=== PATIENT | female | born 2000 | race Caucasian/White ===

== ENCOUNTER 2018-06-25 17:58 | Emergency (ER) | payer OTHER ==
--- NOTE | 2018-06-25 19:14 | EDPHY ---
H & P Stated Complaint: Rash x 3 days; may be r/t cat exposure (has +cat allergy) Time Seen by Provider: 06/25/18 18:23 HPI/ROS: CHIEF COMPLAINT: Rash HISTORY OF PRESENT ILLNESS: This is a 17-year-old college student who presents with concern about a rash. She has developed a rash over both shoulders and also her face. She thinks that it might be related to her known cat allergy. Her roommate has a cat. She has been taking Benadryl for this rash on the Benadryl seems to help. The rash is not itchy. She does not feel short of breath. REVIEW OF SYSTEMS: A ten system review of systems was performed and is negative with the exception of the items mentioned in the HPI. Past medical history: Past surgical history: Family history: Social history: General Appearance: Alert. Vital signs reviewed. Eyes: Pupils equal and round, no conjunctival injection, no discharge. ENT, Mouth: Mucous membranes are moist, no oropharyngeal erythema or edema. Swallowing easily. Neck: No lymphadenopathy, supple. Trachea midline. Respiratory: Lungs are clear to auscultation; no wheezes, rales, or rhonchi. Cardiovascular: Regular rate and rhythm; no murmur, rub, or gallop. Gastrointestinal: Abdomen is soft and nontender, no masses or organomegaly, bowel sounds normal. Skin: Warm and dry, normal color. She has diffuse facial flushing--no swelling. There is a reticular rash over both shoulders and extending onto the clavicle on the right. No urticaria. No vesicles. No excoriations. No rash seen elsewhere on her body. Back: Nontender to palpation over the thoracolumbar spine. No CVAT. Extremities: No lower extremity edema, no calf tenderness or swelling. Neurological: Alert and oriented. Moving all four extremities easily and equally. Psychiatric: Normal affect. - Personal History LMP (Females 10-55): IUD In Place Current Tetanus Diphtheria and Acellular Pertussis (TDAP): Yes - Medical/Surgical History Other PMH: healthy - Social History Smoking Status: Never smoked Constitutional: Initial Vital Signs Temperature (C) 36.7 C 06/25/18 18:00 Heart Rate 84 06/25/18 18:00 Respiratory Rate 16 06/25/18 18:00 Blood Pressure 126/77 H 06/25/18 18:00 O2 Sat (%) 97 06/25/18 18:00 O2 Delivery Mode Room Air Allergies/Adverse Reactions: cats Allergy (Uncoded 06/25/18 18:04) Home Medications: Medication Instructions Recorded predniSONE 20 mg PO BID #8 tablet 06/25/18 Medical Decision Making Differential Diagnosis: I considered a differential diagnosis that includes but is not limited to anaphylaxis, urticaria, lupus, Departure - Departure Disposition: Home, Routine, Self-Care Clinical Impression: Rash Condition: Good Instructions: Acute Rash (ED) Additional Instructions: I do not think that this rash is an allergic reaction. I do not know for sure what is causing the rash. Continue the Benadryl, or other anti-histamine, since it has helped in the past. I am prescribing a short course of steroids to see if that helps. However, I think that you should see both an nutrition partner and a oral and maxillofacial surgery. Look online for local doctors and schedule an appointment. Referrals: BAN OSORIO [Other] - As per Instructions Prescriptions: predniSONE 20 mg PO BID #8 tablet
[2018-06-25 19:30] VITALS: BP 121/78
== END 2018-06-25 19:30 | disposition home or self-care (01) ==
DX: R21 Rash and other nonspecific skin eruption (principal)

== ENCOUNTER 2018-10-25 13:28 | Emergency (ER) | payer OTHER ==
[2018-10-25] MEDS ORDERED: NS 1,000 ML IV ONE (13:29)
[2018-10-25 13:39] LABS: PLATELET COUNT 349 10^3/uL (150-400)
--- NOTE | 2018-10-25 13:54 | EDPHY ---
HPI/HX/ROS/PE/MDM Narrative: CHIEF COMPLAINT: First-time seizure HPI: This patient is a generally healthy 17 year old female. She arrives today via EMS following a witnessed first-time seizure this afternoon. [place] she suddenly leaned forward and fell. She had about two minutes of tonic-clonic seizure activity following this. She has several abrasions on her face and did bite her tongue. Per EMS, she was initially very postictal but is now alert and responding to questions appropriately. BGL 114, somewhat tachycardic and hypertensive initially. The patient states she has been very stressed with her class-work and staying up late to study, and that she could not sleep at all last night. She took one Xanax, which is prescribed to her, for anxiety relief this morning. She denies any history of seizures. She denies chest pain, shortness of breath, vomiting, diarrhea, or any recent illness or trauma. REVIEW OF SYSTEMS: A comprehensive 10 system review of systems is otherwise negative aside from elements mentioned in the history of present illness and medical decision making. PMH: Takes Vyvanse, and Xanax as prescribed as needed. SOCIAL HISTORY: Student at [employer]. Friend at bedside. Single. PHYSICAL EXAM: General:Patient is alert, in no acute distress. ENT:Eyes are normal to inspection. Abrasions to chin and left side of face. Tongue abrasion, no suturable laceration. Neck: Normal inspection. Full range of motion. Respiratory:No respiratory distress. Breath sounds normal bilaterally. Cardiovascular: Regular rate and rhythm. Strong peripheral pulses. Normal cap refill. Abdomen:The abdomen is nontender to palpation. There are no peritoneal signs. There are normal bowel sounds. Back: Normal to inspection. No tenderness to palpation. Skin: Normal color. No rash. Warm and dry. Extremities: Normal appearance. Full range of motion. Neuro: Oriented x3. Normal motor function. Normal sensory function. ED Course: 13:26 Met EMS on arrival. 17 y/o female presents following a witnessed first- time seizure. On exam she has several abrasions as well as an abrasion to her tongue (no suturable laceration). Plan for CT head. Plan for EKG, labs including CBC, chemistries, BHCG. Plan to administer 1L IV NS. EKG was ordered and interpreted by myself. Please see [facility] system for official reading. 14:[address] Ramos, radiologist. CT head negative for acute processes. 14:25 Reassessed patient. Discussed imaging and laboratory results. Patient notes she has been trying to decrease her Xanax intake recently, but admits to taking more than usual last week during spring. She understands that she should take this medication only as prescribed. Plan to discharge home in good condition with referral to neurology. Patient understands she is not to drive or undertake other activities which could cause a danger to herself or others should she have a recurrent seizure. Follow up and strict return precautions discussed. She is comfortable with this plan. - Data Points Imaging Results: Imaging Impressions Head CT 10/25/18 13:30 Impression: No acute intracranial process. Findings and recommendations discussed with Luis Mendez MD at 1420 hour, 10/25/2018. Imaging: Discussed imaging studies w/ scallop cutter Radiologist Laboratory Results: Laboratory Results 10/25/18 13:35 10/25/18 13:35 10/25/18 10/25/18 10/25/18 13:35 13:35 13:35 WBC 7.97 10^3/uL 10^3/uL (3.80-9.50) RBC 4.77 10^6/uL 10^6/uL (4.18-5.33) Hgb 14.8 g/dL g/dL (12.6-16.3) Hct 44.1 % % (38.0-47.0) MCV 92.5 fL fL (81.5-99.8) MCH 31.0 pg pg (27.9-34.1) MCHC 33.6 g/dL g/dL (32.4-36.7) RDW 13.2 % % (11.5-15.2) Plt Count 349 10^3/uL 10^3/uL (150-400) MPV 9.2 fL fL (8.7-11.7) Neut % (Auto) 50.4 % % (39.3-74.2) Lymph % (Auto) 35.9 % % (15.0-45.0) [place] % (Auto) 10.3 % % (4.5-13.0) Eos % (Auto) 2.6 % % (0.6-7.6) Baso % (Auto) 0.5 % % (0.3-1.7) Nucleat RBC Rel Count 0.0 % % (0.0-0.2) Absolute Neuts (auto) 4.02 10^3/uL 10^3/uL (1.70-6.50) Absolute Lymphs (auto) 2.86 10^3/uL 10^3/uL (1.00-3.00) Absolute Monos (auto) 0.82 10^3/uL H 10^3/uL (0.30-0.80) Absolute Eos (auto) 0.21 10^3/uL 10^3/uL (0.03-0.40) Absolute Basos (auto) 0.04 10^3/uL 10^3/uL (0.02-0.10) Absolute Nucleated RBC 0.00 10^3/uL 10^3/uL (0-0.01) Immature Gran % 0.3 % % (0.0-1.1) Immature Gran # 0.02 10^3/uL 10^3/uL (0.00-0.10) Sodium 139 mEq/L mEq/L (135-145) Potassium 4.4 mEq/L mEq/L (3.5-5.2) Chloride 103 mEq/L mEq/L (97-110) Carbon Dioxide 15 mEq/l L mEq/l (22-31) Anion Gap 21 mEq/L H mEq/L (6-14) BUN 9 mg/dL mg/dL (7-23) Creatinine 1.1 mg/dL H mg/dL (0.6-1.0) Estimated GFR > 60 Glucose 93 mg/dL mg/dL (70-100) Calcium 10.1 mg/dL mg/dL (8.5-10.4) Beta HCG, Qual NEGATIVE Medications Given: Discontinued Medications Sodium Chloride (Ns) 1,000 mls @ 0 mls/hr IV EDNOW ONE; Wide Open PRN Reason: Protocol Stop: 10/25/18 13:30 Last Admin: 10/25/18 13:48 Dose: 1,000 mls General Initial Vital Signs: Initial Vital Signs Temperature (C) 36.9 C 10/25/18 13:28 Heart Rate 107 H 10/25/18 13:28 Respiratory Rate 16 04/09/19 13:28 Blood Pressure 139/88 H 10/25/18 13:28 O2 Sat (%) 98 10/25/18 13:28 O2 Delivery Mode Room Air Allergies/Adverse Reactions: cats Allergy (Uncoded 06/25/18 18:04) Home Medications: Medication Instructions Recorded Xanax 10/25/18 Departure - Departure Disposition: Home, Routine, Self-Care Clinical Impression: First time seizure Condition: Good Instructions: New-Onset Seizure in Adults (ED) Additional Instructions: Follow-up with neurologist within 72 hours. Additional testing will likely need to be done for evaluation of your first-time seizure. No driving or dangerous activity such as swimming in a pool or riding a ski lift which could put you or someone else a danger in the event of recurrent seizure. Return to the Emergency Department for further seizures, severe headache, confusion, fever, numbness, weakness, or other worsening of condition. Referrals: [facility] ARMSTRONG [Other] - As per Instructions Genaro Sauceda MD [Medical Doctor] - As per Instructions Stand Alone Forms: School Excuse Report Scribed for: Luis Mendez Report Scribed by: Gisella Park Date of Report: 10/25/18 Time of Report: 14:30 Physician Review and Approval Statement: Portions of this note were transcribed by an ED scribe. I personally performed the history, physical exam, and medical decision making; and confirm the accuracy of the information in the transcribed note.
[2018-10-25 14:58] VITALS: BP 128/86
--- NOTE | 2018-10-25 15:12 | CPEKG ---
Test Reason : OPEN Blood Pressure : / mmHG Vent. Rate : 104 BPM Atrial Rate : 112 BPM P-R Int : 121 ms QRS Dur : 080 ms QT Int : 320 ms P-R-T Axes : 057 076 051 degrees QTc Int : 421 ms Sinus tachycardia with irregular rate Confirmed by Luis Mendez ([id number] on 10/25/2018 3:12:02 PM Referred By: Luis Mendez Confirmed By:Luis Mendez
== END 2018-10-25 14:56 | disposition home or self-care (01) ==
LOC: EDUNIT#
DX: R56.9 Unspecified convulsions (principal); S00.512A Abrasion of oral cavity, initial encounter; S00.81XA Abrasion of other part of head, initial encounter; E86.9 Volume depletion, unspecified; W10.1XXA Fall (on)(from) sidewalk curb, initial encounter; Y92.480 Sidewalk as the place of occurrence of the external cause